=== PATIENT | female | born 2000 | race Caucasian/White ===

== ENCOUNTER 2020-10-11 07:01 | Emergency (ER) | payer SELFPAY ==
[~2020-10-11] VITALS: Ht 155 cm; Wt 63.6 kg
[2020-10-11] MEDS ORDERED: FAMOTIDINE 20 MG (PEPCID) TABLET PO STA (07:14)
[2020-10-11] MEDS ORDERED: LIDOCAINE 2% VISCOUS 15 ML UDC PO ONE (07:15)
[2020-10-11] MEDS ORDERED: ANTACID SUSP 30 ML UDC (MYLANTA) PO ONE (07:15)
--- NOTE | 2020-10-11 07:19 | ED Abdominal Pain ---
General Chief Complaint: Abdominal/GI Problems Stated Complaint: ABD PAIN Source of Information: Patient Exam Limitations: No Limitations History of Present Illness Date Seen by Provider: Oct 11, 2020 Time Seen by Provider: 07:07 Initial Comments Patient to ER by private conveyance with chief complaint of epigastric abdominal pain starting Saturday morning after she woke up. It has been consistently there a little worse with leaning forward or eating meals. She took 2 tablets of ibuprofen in the morning and 2 more tablets on Saturday night which made no difference. She has taken no antacids or any other medicines for it. No history of abdominal surgeries or trauma. She is not having any nausea dysuria diarrhea constipation. No recent travel outside the [facility] or sick contacts. No fevers or chills. She only occasionally imbibes alcohol and none recently. Allergies and Home Medications Allergies Coded Allergies: No Known Drug Allergies (Unverified , 10/11/20) Home Medications Omeprazole 20 Mg Capsule.dr, 20 MG PO BID Prescribed by: MAGALY GODOY on 10/11/20822 Sucralfate 1 Gm Tablet, 1 GM PO QIDACHS Prescribed by: MAGALY GODOY on 10/11/20822 Patient Home Medication List Home Medication List Reviewed: Yes Review of Systems Review of Systems Constitutional: No chills, No diaphoresis EENTM: No Blurred Vision, No Double Vision Respiratory: Denies Cough, Denies SOA at Rest Cardiovascular: Denies Chest Pain, Denies Edema Gastrointestinal: See HPI, Abdominal Pain; Denies Constipated, Denies Diarrhea, Denies Nausea, Denies Vomiting Genitourinary: Denies Burning, Denies Discharge Musculoskeletal: No back pain, No joint pain All Other Systems Reviewed Negative Unless Noted: Yes Past Adgweqj-Rnzzri-Kjvuqs Hx Patient Social History Alcohol Use: Occasionally Uses Drug of Choice: Denies Smoking Status: Never a Smoker Physical Exam Vital Signs Vital Signs - First Documented 10/11/20 07:05 Temp 35.9 Pulse 82 Resp 18 B/P (MAP) 152/90 (110) Pulse Ox 100 O2 Delivery Room Air Capillary Refill : Height/Weight/BMI Height: '" Weight: lbs. oz. kg; BMI Method: General Appearance: WD/WN, mild distress HEENT: PERRL/EOMI, pharynx normal Neck: full range of motion, normal inspection Respiratory: no respiratory distress, no accessory muscle use Cardiovascular: normal peripheral pulses, regular rate, rhythm Gastrointestinal: normal bowel sounds, soft, tenderness (Epigastric and right upper quadrant pain negative for Gentile sign. Negative for mesenteric signs, McBurney's point tenderness, rebound tenderness) Extremities: normal range of motion, non-tender, normal capillary refill Neurologic/Psychiatric: alert, oriented x 3 Skin: normal color, warm/dry Progress/Results/Core Measures Results/Orders Lab Results Laboratory Tests Test 10/11/20 07:06 10/11/20 07:20 Range/Units Urine Color YELLOW Urine Clarity CLEAR Urine pH 6.0 5-9 Urine Specific [place] 1.020 1.016-1.022 Urine Protein NEGATIVE NEGATIVE Urine Glucose (UA) NEGATIVE NEGATIVE Urine Ketones NEGATIVE NEGATIVE Urine Nitrite NEGATIVE NEGATIVE Urine Bilirubin NEGATIVE NEGATIVE Urine Urobilinogen 0.2 < = 1.0 MG/DL Urine Leukocyte Esterase NEGATIVE NEGATIVE Urine RBC (Auto) NEGATIVE NEGATIVE Urine RBC 0-2 /HPF Urine WBC 0-2 /HPF Urine Squamous Epithelial Cells 0-2 /HPF Urine Crystals NONE /LPF Urine Bacteria TRACE /HPF Urine Casts NONE /LPF Urine Mucus NEGATIVE /LPF Urine Culture Indicated NO White Blood Count 9.6 4.3-11.0 10^3/uL Red Blood Count 5.08 3.80-5.11 10^6/uL Hemoglobin 13.6 11.5-16.0 g/dL Hematocrit 43 35-52 % Mean Corpuscular Volume 85 80-99 fL Mean Corpuscular Hemoglobin 27 25-34 pg Mean Corpuscular Hemoglobin Concent 31 L 32-36 g/dL Red Cell Distribution Width 13.1 10.0-14.5 % Platelet Count 247 130-400 10^3/uL Mean Platelet Volume 10.9 9.0-12.2 fL Immature Granulocyte % (Auto) 0 % Neutrophils (%) (Auto) 62 42-75 % Lymphocytes (%) (Auto) 28 12-44 % Monocytes (%) (Auto) 7 0-12 % Eosinophils (%) (Auto) 2 0-10 % Basophils (%) (Auto) 0 0-10 % Neutrophils # (Auto) 6.0 1.8-7.8 10^3/uL Lymphocytes # (Auto) 2.7 1.0-4.0 10^3/uL Monocytes # (Auto) 0.7 0.0-1.0 10^3/uL Eosinophils # (Auto) 0.2 0.0-0.3 10^3/uL Basophils # (Auto) 0.0 0.0-0.1 10^3/uL Immature Granulocyte # (Auto) 0.0 0.0-0.1 10^3/uL Sodium Level 139 135-145 MMOL/L Potassium Level 4.2 3.6-5.0 MMOL/L Chloride Level 106 98-107 MMOL/L Carbon Dioxide Level 22 21-32 MMOL/L Anion Gap 11 5-14 MMOL/L Blood Urea Nitrogen 9 7-18 MG/DL Creatinine 0.80 0.60-1.30 MG/DL Estimat Glomerular Filtration Rate > 60 BUN/Creatinine Ratio 11 Glucose Level 102 70-105 MG/DL Calcium Level 9.4 8.5-10.1 MG/DL Corrected Calcium 9.2 8.5-10.1 MG/DL Total Bilirubin 0.3 0.1-1.0 MG/DL Aspartate Amino Transf (AST/SGOT) 16 5-34 U/L Alanine Aminotransferase (ALT/SGPT) 19 0-55 U/L Alkaline Phosphatase 93 40-136 U/L C-Reactive Protein High Sensitivity 0.51 H 0.00-0.50 MG/DL Total Protein 7.3 6.4-8.2 GM/DL Albumin 4.2 3.2-4.5 GM/DL Lipase 11 8-78 U/L My Orders Orders - MAGALY GODOY Lidocaine 2% Viscous 15 Ml (Xylocaine Vi (10/11/20 07:15) Famotidine Tablet (Pepcid Tablet) (10/11/20 07:14) Antacid Suspension (Mylanta Suspension (10/11/20 07:15) Cbc With Automated Diff (10/11/20 07:14) Comprehensive Metabolic Panel (10/11/20 07:14) Hs C Reactive Protein (10/11/20 07:14) Lipase (10/11/20 07:14) Ua Culture If Indicated (10/11/20 07:14) Urine Bedside (10/11/20 07:14) Medications Given in ED Current Medications Medications Dose Ordered Sig/Quinn Route Start Time Stop Time Status Last Admin Dose Admin Al Hydrox/Mg Hydrox/Simethicone 30 ml ONCE ONCE PO 10/11/20 07:15 10/11/20 07:16 DC 10/11/20 07:21 30 ML Lidocaine HCl 15 ml ONCE ONCE PO 10/11/20 07:15 10/11/20 07:16 DC 10/11/20 07:20 15 ML Vital Signs/I&O 10/11/20 07:05 Temp 35.9 Pulse 82 Resp 18 B/P (MAP) 152/90 (110) Pulse Ox 100 O2 Delivery Room Air Progress Progress Note #1: Time: :18 Progress Note Gastritis, pancreatitis, gallbladder. Plan to check some labs and give her a GI cocktail. Urinalysis with . Progress Note #2: Time: 08:20 Progress Note Patient symptoms are completely resolved with GI cocktail. Plan to put her on Carafate and omeprazole with follow-up with the general surgeon, Dr. Peoples as necessary in the next 2 weeks Departure Impression Primary Impression: Gastritis Qualified Codes: K29.00 - Acute gastritis without bleeding Disposition: HOME, SELF-CARE Condition: Improved Departure-Patient Inst. Decision time for Depature: 08:20 Referrals: MELISSA PEOPLES DO NO,LOCAL PHYSICIAN (PCP) Primary Care Physician Patient Instructions: Gastritis (DC) Add. Discharge Instructions: Drink plenty of fluids. Omeprazole 20 mg twice a day to reduce acid for the next month. Carafate half an hour before meals and at bedtime for the next 2 weeks to protect the lining of your stomach. If not seeing improvement the next week then follow-up with Dr. Peoples, general surgery to discuss EGD or appropriate management of your symptoms. For breakthrough pain you can use Tylenol 1000 mg every 8 hours as necessary. Tums, Rolaids, Mylanta Maalox etc. will also help neutralize the acid in your stomach and reduce your pain. Avoid NSAIDs such as ibuprofen, Aleve, naproxen, Motrin as these will delay healing of your stomach lining. Avoid spicy greasy foods or foods high in acid such as orange juice and tomatoes. All discharge instructions reviewed with patient and/or family. Voiced understanding. Scripts Sucralfate (Carafate) 1 Gm Tablet 1 GM PO QIDACHS for 14 Days, #56 TAB 0 Refills Prov: MAGALY GODOY 10/11/20 Omeprazole (Omeprazole) 20 Mg Capsule. 20 MG PO BID for 30 Days, #60 CAP 0 Refills Prov: MAGALY GODOY 10/11/20 Work/School Note: Work Release Form Date Seen in the Emergency Department: Oct 11, 2020 Return to Work: Oct 12, 2020 Restrictions: No Restrictions Copy Copies To 1: MELISSA PEOPLES TITUS J Oct 11, 2020 07:19
[2020-10-11 07:34] LABS: BILIRUBIN,URINE NEGATIVE (NEGATIVE); CLARITY,URINE CLEAR; COLOR,URINE YELLOW; GLUCOSE, URINE (UA) NEGATIVE (NEGATIVE); KETONES,URINE NEGATIVE (NEGATIVE); LEUKOCYTE ESTERASE ,URINE NEGATIVE (NEGATIVE); NITRITE,URINE NEGATIVE (NEGATIVE); PROTEIN,URINE NEGATIVE (NEGATIVE)
[2020-10-11 07:34] LABS: BASOPHILS % (AUTO) 0 % (0-10); EOSINOPHILS # (AUTO) 0.2 10^3/uL (0.0-0.3); EOSINOPHILS % (AUTO) 2 % (0-10); HEMATOCRIT 43 % (35-52); HEMOGLOBIN 13.6 g/dL (11.5-16.0); LYMPHOCYTES # (AUTO) 2.7 10^3/uL (1.0-4.0); LYMPHOCYTES % (AUTO) 28 % (12-44); MEAN CORPUSCULAR HEMOGLOBIN 27 pg (25-34); MEAN CORPUSCULAR HGB CONC 31 g/dL (32-36); MEAN CORPUSCULAR VOLUME 85 fL (80-99); MEAN PLATELET VOLUME 10.9 fL (9.0-12.2); MONOCYTES # (AUTO) 0.7 10^3/uL (0.0-1.0); MONOCYTES % (AUTO) 7 % (0-12); NEUTROPHILS % (AUTO) 62 % (42-75); PLATELET COUNT 247 10^3/uL (130-400); WHITE BLOOD COUNT 9.6 10^3/uL (4.3-11.0)
[2020-10-11 07:45] LABS: ALBUMIN 4.2 GM/DL (3.2-4.5); CHLORIDE 106 MMOL/L (98-107); POTASSIUM 4.2 MMOL/L (3.6-5.0); SODIUM 139 MMOL/L (135-145)
[2020-10-11 07:46] LABS: CALCIUM 9.4 MG/DL (8.5-10.1)
[2020-10-11 07:47] LABS: GLUCOSE 102 MG/DL (70-105); TOTAL PROTEIN 7.3 GM/DL (6.4-8.2)
[2020-10-11 07:49] LABS: BILIRUBIN,TOTAL 0.3 MG/DL (0.1-1.0); CARBON DIOXIDE 22 MMOL/L (21-32)
[2020-10-11 07:51] LABS: ALKALINE PHOSPHATASE 93 U/L (40-136); GFR ESTIMATED > 60
[2020-10-11 07:52] LABS: BUN/CREATININE RATIO 11
[2020-10-11 07:54] LABS: ALANINE AMINOTRANSFERASE 19 U/L (0-55); LIPASE 11 U/L (8-78)
[2020-10-11 08:02] LABS: BACTERIA,URINE TRACE /HPF; RBC,URINE 0-2 /HPF; SQUAMOUS EPITHELIAL CELL,UR 0-2 /HPF; WBC,URINE 0-2 /HPF
[2020-10-11] MEDS ORDERED: OMEP20CA18 PO (08:23)
[2020-10-11] MEDS ORDERED: SUCR1TAB36 PO (08:23)
[2020-10-11 08:44] VITALS: BP 152/90
== END 2020-10-11 08:44 | disposition home or self-care (01) ==
LOC: ER 07:04
DX: K29.00 Acute gastritis without bleeding (principal)
CPT/HCPCS: 36415; 80053; 81000; 83690; 84703; 85025; 86141

== ENCOUNTER 2022-12-17 18:01 | Emergency (ER) | payer BC ==
[~2022-12-17] VITALS: Ht 154 cm; Wt 60.0 kg
[~2022-12-17 18:01] MED LIST: OMEP20CA18 PO; SUCR1TAB36 PO
[2022-12-17 18:09] VITALS: BP 139/95
[2022-12-17] MEDS ORDERED: Sulfamethoxazole/Trimethoprim DS TABLET PO STA (18:34)
[2022-12-17] MEDS ORDERED: CEPHALEXIN 250 MG CAPSULE PO STA (18:35)
[2022-12-17] MEDS ORDERED: SULF-221 PO (18:38)
[2022-12-17] MEDS ORDERED: CEPH500T PO (18:38)
--- NOTE | 2022-12-17 18:39 | ED Integumentary General ---
General Chief Complaint: Bite-Animal/Human/Insect Stated Complaint: POSS SPIDER LEFT LEG Nursing Triage Note: PT TO ED W/ C/O POSS SPIDER BITE TO LT INNER THIGH ONSET X2 DAYS, WORSE TODAY. SITE RED, IRRITATED W/ DRAINAGE NOTED. NO OTHER C/O VOICED. Source: patient Exam Limitations: no limitations (JAY GUDINO) History of Present Illness Date Seen by Provider: Dec 17, 2022 Time Seen by Provider: 18:36 Initial Comments Patient is a 22-year-old female who presents to the ED for infection to her left upper leg. She states 2 days ago she noticed a small area of redness. She states over the past 2 days increased redness and swelling. It started to drain purulent drainage today. She states the pain seemed to improve but continue having purulent drainage. History of infection in the past. She denies of any fever, chills, nausea, vomiting, diarrhea, drug use (JAY GUDINO) Allergies and Home Medications Allergies Coded Allergies: No Known Drug Allergies (Unverified , 10/11/20) Patient Home Medication List Home Medication List Reviewed: Yes (JAY GUDINO) Cephalexin (Cephalexin) 500 Mg Tablet, 500 MG PO QID Prescribed by: KEY RECINOS on 12/17/221837 Omeprazole (Omeprazole) 20 Mg Capsule.dr, 20 MG PO BID Prescribed by: MAGALY GODOY on 10/11/20822 Sucralfate (Carafate) 1 Gm Tablet, 1 GM PO QIDACHS Prescribed by: MAGALY GODOY on 10/11/20822 Sulfamethoxazole/Trimethoprim (Bactrim Ds Tablet) 800 Mg-160 Mg Tablet, 1 EACH PO BID Prescribed by: KEY RECINOS on 12/17/221837 Review of Systems Review of Systems Constitutional: No chills, No diaphoresis, No malaise, No weakness EENTM: No hearing loss, No ear pain, No blurred vision Respiratory: No cough, No dyspnea on exertion Cardiovascular: No chest pain Gastrointestinal: No abdominal pain, No nausea, No vomiting Genitourinary: No decreased output, No discharge Musculoskeletal: No back pain, No joint pain Skin: change in color (JAY GUDINO) All Other Systems Reviewed Negative Unless Noted: Yes (JAY GUDINO) Past Nmidfgn-Itwfsr-Vwvegd Hx Past Medical History Surgery/Hospitalization HX: DENIED Surgeries: No Respiratory: No Cardiac: No Neurological: No Genitourinary: No Gastrointestinal: No Musculoskeletal: No Endocrine: No HEENT: No Integumentary: No Blood Disorders: No (JAY GUDINO) Physical Exam Vital Signs Vital Signs - First Documented 12/17/22 18:09 Temp 36.7 Pulse 83 Resp 20 B/P (MAP) 139/95 (110) Pulse Ox 99 O2 Delivery Room Air (DEREK CONTRERAS MD) Vital Signs Capillary Refill : Less Than 3 Seconds (JAY GUDINO) General Appearance: WD/WN, no apparent distress HEENT: PERRL/EOMI, normal ENT inspection, TMs normal, pharynx normal Neck: non-tender, full range of motion, supple Cardiovascular: regular rate, rhythm, no edema, no gallop, no JVD Respiratory: chest non-tender, lungs clear, normal breath sounds, no respiratory distress, no accessory muscle use Gastrointestinal: normal bowel sounds, non tender, soft, no organomegaly Back: normal inspection, no CVA tenderness Extremities: normal range of motion, non-tender, normal inspection, no pedal edema Neurologic/Psychiatric: clean out driller helper II-XII nml as tested, no motor/sensory deficits, alert, normal mood/affect Skin: other (Draining area to the left inner thigh. Purulent drainage. Localized erythema. Localized induration) Lymphatic: no adenopathy (JAY GUDINO) Progress/Results/Core Measures Results/Orders Vital Signs/I&O 12/17/22 18:09 Temp 36.7 Pulse 83 Resp 20 B/P (MAP) 139/95 (110) Pulse Ox 99 O2 Delivery Room Air (DEREK CONTRERAS MD) Blood Pressure Mean: 110 Departure Communication (PCP) Differential diagnosis cellulitis versus abscess . patient has an active draining abscess to the left anterior thigh. Purulent drainage noted. Localized induration. Discussed with patient likely needs a bigger incision to assist in drainage. She refused. She is requesting oral antibiotics at this time. Patient received Bactrim and Keflex here. Denies history of MRSA. She does have other lesions noted throughout her body but none that needs drainage. Concern for infectious etiology such as staph or strep. Discussed with patient if the abscess increase in size she we will need further drainage. She acknowledges. Will discharge with Keflex and Bactrim. Warm compresses. If increased pain or swelling to return back to ED. Follow-up your PCP in 2 to 3 days for reevaluation. Discussed wound care. Topical Neosporin twice a day. (JAY GUDINO) Impression Primary Impression: Abscess Disposition: 01 HOME, SELF-CARE Condition: Stable Departure-Patient Inst. Decision time for Depature: 18:38 (JAY GUDINO) Referrals: [facility],LOCAL PHYSICIAN (PCP) Primary Care Physician Patient Instructions: Abscess Incision and Drainage (DC) Add. Discharge Instructions: If increased redness, swelling or pain to return back to ED. Recommend warm compresses to help with drainage. All discharge instructions reviewed with patient and/or family. Voiced understanding. Scripts Cephalexin (Cephalexin) 500 Mg Tablet 500 MG PO QID for 7 Days, #28 TAB Prov: JAY GUDINO 12/17/22 Sulfamethoxazole/Trimethoprim (Bactrim Ds Tablet) 800 Mg-160 Mg Tablet 1 EACH PO BID for 7 Days, #14 TAB Prov: JAY GUDINO 12/17/22 ATTENDING PHYSICIAN NOTE: I was physically present as attending physician in the emergency department during the care of this patient, but I was not directly involved in the decision making or delivery of care for this patient. (DEREK CONTRERAS MD) JAY GUDINO Dec 17, 2022 18:39 DEREK CONTRERAS MD Dec 18, 2022 03:32
== END 2022-12-17 18:46 | disposition home or self-care (01) ==
LOC: EDUNIT# 18:01 → ER 18:03
DX: L02.416 Cutaneous abscess of left lower limb (principal)
CPT/HCPCS: 99283